=== PATIENT | male | born 1990 | race Caucasian/White ===

== ENCOUNTER 2018-11-28 18:48 | Emergency (ER) | payer MEDICAID ==
[~2018-11-28] VITALS: Ht 172.7 cm; Wt 75.0 kg
[2018-11-28] MEDS ORDERED: MORPHINE SULFATE 4 MG/ML CPJ (NOT FOR IM USE) IV STA (19:05)
[2018-11-28] MEDS ORDERED: ONDANSETRON HCL 4MG/2ML INJ IV STA (19:05)
[2018-11-28] MEDS ORDERED: SODIUM CHLORIDE 0.9% 1,000 ML IV ONE (19:05)
[2018-11-28] MEDS ORDERED: TETANUS, DIPHTHERIA, PERTUSSIS VAC/PF 0.5ML (>7YR OLD) IM ONE (19:15)
[2018-11-28 19:42] LABS: BASOPHILS % 0.5 % (0.0-2.0); EOSINOPHILS % 1.5 % (0.0-5.0); HEMATOCRIT. 46.2 % (42.0-52.0); HEMOGLOBIN. 15.9 g/dL (14.0-18.0); LYMPHOCYTES % 27.3 % (20.0-50.0); MEAN CORPUSCULAR HEMOGLOBIN 30.5 pg (28.0-32.0); MEAN CORPUSCULAR VOLUME 88.6 fL (80.0-94.0); MEAN PLATELET VOLUME 9.4 fl (7.4-10.4); MONOCYTES % 6.4 % (2.0-8.0); NEUTROPHILS % 64.3 % (40.0-76.0); PLATELET 246 x1000/uL (130-400); RED BLOOD CELL COUNT 5.22 mill/uL (4.7-6.1); RED CELL DISTRIBUTION WIDTH 12.9 % (11.6-14.6)
[2018-11-28 19:45] LABS: CHLORIDE 105 mEq/L (98-107)
[2018-11-28] MEDS ORDERED: IOHEXOL-350 100 ML BOTTLE ONE (20:58)
[2018-11-28] MEDS ORDERED: IOHEXOL-300 100 ML BOTTLE ONE (20:58)
[2018-11-28 22:57] VITALS: BP 112/68
== END 2018-11-28 23:09 | disposition home or self-care (01) ==
LOC: ER 18:48
DX: S00.03XA Contusion of scalp, initial encounter (principal); S00.81XA Abrasion of other part of head, initial encounter; S10.81XA Abrasion of other specified part of neck, initial encounter; S40.812A Abrasion of left upper arm, initial encounter; E87.6 Hypokalemia; Z87.891 Personal history of nicotine dependence; Y04.0XXA Assault by unarmed brawl or fight, initial encounter; Y93.89 Activity, other specified; Y92.488 Other paved roadways as the place of occurrence of the external cause
CPT/HCPCS: 36415; 70450; 70498; 71045; 71260; 74177; 80053; 85025; 90471; 90715; 96374; 96375; 99284; J2270; J2405; J7030; Q9967